=== PATIENT | male | born 1975 | race African-American/Black ===

== ENCOUNTER 2024-02-26 16:23 | Emergency (ER) | payer MEDICARE, MEDICAID | END 2024-02-26 17:32 | disposition home or self-care (01) | LOC: FB.ED 16:23 | DX: S90.121A Contusion of right lesser toe(s) without damage to nail, initial encounter (principal); F17.210 Nicotine dependence, cigarettes, uncomplicated; W22.8XXA Striking against or struck by other objects, initial encounter | CPT/HCPCS: 73660-RT; 99283 ==